=== PATIENT | female | born 1965 | race Caucasian/White ===

== ENCOUNTER 2017-10-10 10:12 | Emergency (ER) | payer SELFPAY ==
--- NOTE | 2017-10-10 10:16 | ED Physician Documentation ---
General Adult - HISTORIAN Historian: patient - HPI Stated Complaint: back pain Chief Complaint: General Adult Onset: days ago Timing: still present Severity: moderate Further Comments: yes (Pt is a 52 yo female with chronic pain, back surgery, who is wheelchair dependent, and with GERD, who has come to this area from [place] to see her daughter who has issued a restaining order against the pt and her . They have been staying at [facility] and have an appointment to be seen tomorrow at [facility] there. Pt is out of , or cannot access some of her medications. Pt had been on sucralfate for GERD , gastritis, but is out of that as well as her pain med. Pt is requesting GI cocktail.) - ROS CONST: no problems EYES/ENT: none CVS/RESP: none GI/: abdominal pain (GERD) MS/SKIN/LYMPH: none NEURO/PSYCH: anxiety - PAST HX Past History: other (Heart dz, thyroid d/o, back pain) Surgeries/Procedures: cholecystectomy, other (appendectomy, back surgery) Allergies/Adverse Reactions: Allergies Allergy/AdvReac Type Severity Reaction Status Date / Time No Known Allergies Allergy Unverified 10/10/17 10:35 - SOCIAL HX Smoking History: cigarettes - FAMILY HX Family History: No - REVIEWED ASSESSMENTS Nursing Assessment Reviewed: Yes Vitals Reviewed: Yes Progress - Progress Progress: GI cocktail improved Rx Sucralfate 1 gm po qid prn #40 f/u tomorrow at [facility] as planned. General Adult Physical Exam - PHYSICAL EXAM GENERAL APPEARANCE: mild distress EENT: pharynx normal NECK: normal inspection, supple RESPIRATORY: no resp distress, chest non-tender, breath sounds normal CVS: reg rate & rhythm, heart sounds normal ABDOMEN: soft, no organomegaly, normal bowel sounds BACK: normal inspection, no CVA tenderness SKIN: warm/dry, normal color EXTREMITIES: non-tender NEURO: oriented X3, sensation nml Discharge Clincal Impression: GERD, chronic back pain Referrals: Primary Doctor,No [Primary Care Provider] - Condition: Stable Disposition: 01 HOME, SELF-CARE Decision to Admit: NO Decision Time: 13:13
[2017-10-10] MEDS ORDERED: MAG HYDROX/AL HYDROX/SIMETH 30 ML, Lidocaine 2%Visc 15ml 20 MG, PHENobarb/HYOSCY/ATROPI... PO ONE ×3 (10:34)
[2017-10-10] MEDS ORDERED: Lidocaine 2%Visc 15ml 20 MG/ML UDC ONE (10:41)
[2017-10-10] MEDS ORDERED: MAGNESIUM HYDROXIDE/AL HYDROX 30 ML UDC PO ONE (10:41)
[2017-10-10 11:23] VITALS: BP 110/58
== END 2017-10-10 11:22 | disposition home or self-care (01) ==
LOC: ED 10:12
DX: K21.9 Gastro-esophageal reflux disease without esophagitis (principal); M54.5 Low back pain
CPT/HCPCS: 99283; A9270-GY

== ENCOUNTER 2017-10-25 14:58 | Emergency (ER) | payer SELFPAY ==
[2017-10-25 15:13] VITALS: BP 130/90
--- NOTE | 2017-10-25 15:30 | ED Physician Documentation ---
Sore Throat/Dental Pain - HISTORIAN Historian: patient - HPI Stated Complaint: Dental pain Chief Complaint: Dental Pain Onset: days ago Context: Dental Caries Further Comments: yes (52 year old female patient presents with complaint of pain with wearing bridge. C/O gum pain and edema in right lower back area.) - ROS CONST: no problems CVS/RESP: none GI/: denies: nausea, vomiting MS/SKIN/LYMPH: denies: muscle aches, rash, leg swelling, ankle swelling, other NEURO/PSYCH: none - PAST HX Past History: gum disease Other History: other (HTN, hypothyroidism; depression) Allergies/Adverse Reactions: Allergies Allergy/AdvReac Type Severity Reaction Status Date / Time ketorolac [From Toradol] Allergy Verified 10/25/17 15:14 nalbuphine [From Nubain] Allergy Verified 10/25/17 15:14 sumatriptan [From Imitrex] Allergy Verified 10/25/17 15:14 Home Medications: Ambulatory Orders Medication Instructions Recorded Albuterol Sulfate [Proair 2 puff INH PRN PRN 10/25/17 Respiclick] Baclofen [Baclofen] 1 tab PO DAILY 10/25/17 Butalb/Acetaminophen/Caffeine 1 tab PO PRN PRN 10/25/17 [[id number]-Gjpw 50-325-40] Escitalopram Oxalate [Lexapro] 1 tab PO DAILY 10/25/17 Esomeprazole Magnesium [Nexium] 1 tab PO TID 10/25/17 Furosemide [Lasix] 20 mg PO DAILY 10/25/17 Gabapentin [Gralise] 1 tab PO BID 10/25/17 Levothyroxine Sodium [Unithroid] 1 tab PO DAILY 10/25/17 Lubiprostone [Amitiza] 1 tab PO BID 10/25/17 Metoprolol Succinate [Toprol Xl] 1 tab PO DAILY 10/25/17 Ondansetron [Zofran Odt] 1 tab PO PRN PRN 10/25/17 Penicillin V Potassium [Pen V K] 500 mg PO TID #30 tablet 10/25/17 Pimecrolimus [Elidel] 1 applic TOP PRN PRN 10/25/17 Ropinirole HCl [Ropinirole HCl] 1 tab PO DAILY 10/25/17 Ropinirole HCl [Ropinirole HCl] 1 tab PO HS 10/25/17 Sucralfate [Carafate] 1 ml PO DAILY 10/25/17 Varenicline Tartrate [Chantix] 1 tab PO BID 10/25/17 - SOCIAL HX Smoking History: cigarettes - FAMILY HX Family History: No - VITAL SIGNS Vital Signs: Vital Signs Temp Pulse Resp BP Pulse Ox 96.7 F L 98 H 16 130/90 95 10/25/17 15:03 10/25/17 15:03 10/25/17 15:03 10/25/17 15:03 10/25/17 15:03 - REVIEWED ASSESSMENTS Nursing Assessment Reviewed: Yes Vitals Reviewed: Yes Dental Pain Physical Exam - EXAM General Appearance: mild distress Head/Neck: other (lymph edema noted in submandibular and anterior cervical chains. ) Mouth/Throat: lips nml, pharynx nml, voice nml, no drooling, no air way problems , no thrush, membranes nml, other (edema in left lower gums; signficant recession of gums noted around #43; only tooth on bottom right area. ) Respiratory: no resp. distress, breath sounds nml CVS: reg. 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 Tylenol or ibuprofen as needed for pain. Condition: Stable Disposition: 01 HOME, SELF-CARE Decision to Admit: NO Decision Time: 15:28
== END 2017-10-25 15:34 | disposition home or self-care (01) ==
LOC: ED 14:58
DX: K02.9 Dental caries, unspecified (principal)
CPT/HCPCS: 99282